=== PATIENT | male | born 1990 | race Caucasian/White ===

== ENCOUNTER 2022-02-10 07:16 | Day surgery (SDC) | payer BC ==
[~2022-02-10] VITALS: Ht 175.3 cm; Wt 93.9 kg
[2022-02-10 07:50] LABS: BASO % 0.4 % (0.0-2.0); EOS % 0.1 % (0.0-4.0); GRAN # 6.5 K/mm3 (1.4-6.5); GRAN % 71.7 % (42.2-75.2); HEMATOCRIT 43.2 % (42.0-52.0); HEMOGLOBIN 15.4 g/dl (13.5-18.0); LYMPH # 1.6 K/mm3 (1.2-3.4); LYMPH % 17.1 % (20.0-51.0); MEAN CELL VOLUME 93 fl (80.0-100.0); MEAN CORPUSCULAR HEMOGLOBIN 33 pg (27-31); MEAN CORPUSCULAR HGB CONC 36 g/dl (33.0-37.0); MEAN PLATELET VOLUME 10.6 fl (7.4-10.4); MONO % 10.5 % (1.7-9.3); PLATELET COUNT 222 K/mm3 (130-400); RED BLOOD COUNT 4.65 M/mm3 (4.20-5.60); REDCELL DISTRIBUTION WIDTH-CV 12.3 % (11.5-14.5)
[2022-02-10 08:17] LABS: ALBUMIN 4.4 gm/dL (3.5-5.0); BILIRUBIN,TOTAL 0.8 mg/dL (0.2-1.2); CALCIUM 9.8 mg/dL (8.4-10.2); CREATININE, serum 0.9 mg/dL (0.72-1.25); POTASSIUM 3.7 mmol/L (3.5-4.5); TOTAL PROTEIN 8.2 gm/dL (6.2-8.1)
[2022-02-10 12:44] VITALS: BP 123/61; PULSE 60; TEMP 98.4
[2022-02-10] MEDS ORDERED: NORCO 325 MG-51 TAB PO (14:49)
[2022-02-10 14:55] VITALS: BP 143/79; PULSE 66; TEMP 98.2
--- NOTE | 2022-02-10 14:55 | NUR ---
PATIENT TO ROOM 5 VIA CART. HE IS ALERT AND ORIENTED, HE RATES HIS PAIN 5-6/10 AND REQUESTS PAIN MEDICATION. VITAL SIGNS WNL, AND MOTHER AT BEDSIDE. HE REQUESTS BLUEBERRY MUFFIN, ORANGE JUICE, AND APPLESAUCE. WILL CONTINUE TO MONITOR.
[2022-02-10 15:10] VITALS: BP 119/75; PULSE 69
--- NOTE | 2022-02-10 15:10 | NUR ---
PATIENT IS FULLY AWAKE AND ORIENTED. VITAL SIGNS WNL. ONE NORCO 5 MG GIVEN PER PATIENT REQUEST. HE IS TOLERATING DRINKING AND EATING WELL. WILL CONTINUE TO MONITOR.
[2022-02-10 15:25] VITALS: BP 119/71; PULSE 59
== END 2022-02-10 16:22 | disposition home or self-care (01) ==
LOC: COL.ER 07:16 → SDCO 09:17
PROVIDERS: Emergency Medicine
DX: K35.80 Unspecified acute appendicitis (principal); F17.210 Nicotine dependence, cigarettes, uncomplicated
CPT/HCPCS: J0690; J1100; J1885; J2270; J2405; J2543; J2704; J2710; J2765; J3010; J7030; J7120; Q9967